=== PATIENT | male | born 1945 | race Caucasian/White ===

== ENCOUNTER 2018-11-06 10:48 | Day surgery (SDC) | payer OTHER, BC ==
[2018-11-05 17:43] VITALS: BMI 22.8
[2018-11-06] MEDS ORDERED: MIDAZOLAM HCL 2 MG/2 ML SINGLE DOSE VIAL ONE ×2 (12:43→12:47)
[2018-11-06] MEDS ORDERED: ceFAZolin SODIUM 1 GM VIAL ONE (12:47)
[2018-11-06] MEDS ORDERED: DEXAMETHASONE SOD PHOSPHATE 4 MG/1 ML VIAL ONE (12:47)
[2018-11-06] MEDS ORDERED: ceFAZolin SODIUM 1 GM VIAL IVPB ONE (12:54)
--- NOTE | 2018-11-06 13:01 | OP ---
Operative Note - Note: Operative Date: 11/06/18 Pre-Operative Diagnosis: Right renal calculus Operation: Right renal stone Post-Operative Diagnosis: Same as Pre-op Surgeon: Julio Perez MD. Anesthesia: MAC Operative Report Dictated: Yes
[2018-11-06] MEDS ORDERED: ELECTROLYTE-148 SOLN 1,000 ML IV SCH (13:15)
[2018-11-06] MEDS ORDERED: KETOROLAC TROMETHAMINE 30 MG/1 ML VIAL ONE (13:23)
[2018-11-06 15:10] VITALS: BP 129/77; PULSE 61; TEMP 98
--- NOTE | 2018-11-07 09:55 | OP ---
DATE OF OPERATION: 11/06/2018 SURGEON: Julio Perez MD PREOPERATIVE DIAGNOSIS: Right renal calculus in retained stent. POSTOPERATIVE DIAGNOSIS: Right renal calculus in retained stent. PROCEDURE: Extracorporeal shock wave lithotripsy HISTORY: This is a pleasant 73-year-old gentleman with a long history of urinary calculi who by another urologist was treated approximately 1 year ago. Patient presented with recurrent hematuria and flank pain. Preoperative imaging revealed the retained stent with multiple calcifications along the course of the stent including a 1-cm renal pelvic stone as well as a bladder stone. After discussing treatment options out loud and difficulty of the situation being that the stent was calcified throughout its course, it was recommended then to do a lithotripsy first to break up the renal pelvic stone and then to perform ureteroscopy which may be end-stage procedures due to the complexity of the condition. All questions were answered. Risks and benefits were discussed clearly. BRIEF OPERATIVE NOTE: The patient was brought to the operating room, placed in supine position. Once general anesthesia was administered, the stone was localized using 3D fluoroscopy. At this time, approximately 2500 shocks were delivered in electromagnetic fashion. Patient tolerated the procedure well and was brought to the recovery room in stable and satisfactory condition. Intravenous antibiotics were given prior to the procedure. Austyn MERRITT/[id number]
== END 2018-11-06 15:10 | disposition home or self-care (01) ==
LOC: JASU-SURG 10:48
PROVIDERS: ATTEND Urology
PROC: 0TF3XZZ Fragmentation in Right Kidney Pelvis, External Approach (ICD-10-PCS; principal; 2018-11-06 11:15)
DX: N20.0 Calculus of kidney (principal)

== ENCOUNTER 2018-11-10 04:06 | Emergency (ER) | payer OTHER, BC ==
--- NOTE | 2018-11-10 04:37 | PDOC ---
Attending Attestation - Resident Resident Name: Daniel Sepulveda - ED Attending Attestation I have performed the following: I have examined & evaluated the patient, The case was reviewed & discussed with the resident, I agree w/resident's findings & plan - HPI HPI: 11/10/18 05:07 Pt had lithotripsy and he now has pain, as the stones are passing. Pt comes to the ER for relief. - Physicial Exam PE: 11/10/18 05:08 Pt has suprapubic pain at this time. - Medical Decision Making 11/10/18 05:08 Pt had labs sent. He will be hydrated and he was given toradol. He imediately felt better with the toradol. 11/10/18 05:37 UA normal. Pt has blood; no question there will be some WBCs; however, no nitrites and pt will be sent home with analgesics; no need for ABX at this time. 11/10/18 05:38 Diagnosis renal colic
[2018-11-10 04:43] VITALS: BP 143/95; PULSE 75; TEMP 98.2; BMI 23.1
[2018-11-10] MEDS ORDERED: ONDANSETRON 4 MG/2 ML VIAL IVPUSH ONE (04:43)
[2018-11-10] MEDS ORDERED: SODIUM CHLORIDE 1,000 ML IV STA (04:43)
[2018-11-10] MEDS ORDERED: ACETAMINOPHEN 325 MG TABLET (FP) PO ONE (04:43)
--- NOTE | 2018-11-10 04:43 | PDOC ---
History of Present Illness <Benita Aguilera - Last Filed: 11/10/18 05:38> - General History Source: Patient Exam Limitations: No Limitations - History of Present Illness Initial Comments: Kalyan Murray is a 73 yo M w a sig pmh of kidney stones s/p recent lithotripsy 3 days prior, BPH, and inguinal hernia surgeries who presents to the [facility] ER via private auto for right flank pain stating he has a kidney stone and is in excruciating pain. The patient states he had a 10 mm obstructing stone recently diagnosed for which he underwent lithotripsy this past Monday by Dr. Julio Perez. Ever since the lithotripsy he has been urinating scant blood. He has had mild pain on and off but this morning at 12:30 Am the pain became excruciating and he could not tolerate it. The pain was sharp in the right flank and radiated down to his right abdomen and to the groin. The pain was rated 10/10 and associated with nausea but no emesis. Patient tried taking tylenol for the pain without relief. Patient denies recent fevers, chills, infections. Denies chest pain, SOB, or difficulty breathing. Endorses hematuria but denies dysuria, frequency, or urgency. PCP: Bret Tenorio Urologist: Julio Perez PSH: Lithotripsy x2, inguinal hernia surgery Social Hx: Denies smoking, drinking, or other substance usage. Allergies: NKA, NKDA <Daniel Sepulveda - Last Filed: 11/10/18 06:16> - General Chief Complaint: Back Pain Stated Complaint: POST PROCEDURE ABD PAIN Time Seen by Provider: 11/10/18 04:33 Past History <Benita Aguilera - Last Filed: 11/10/18 05:38> - Past Medical History Anemia: No Asthma: No Cancer: No Cardiac Disorders: No CVA: No COPD: No CHF: No Dementia: No Diabetes: No GI Disorders: No Disorders: Yes (enlarged prostate) HTN: No Hypercholesterolemia: No Liver Disease: No Seizures: No Thyroid Disease: No - Surgical History Abdominal Surgery: Yes (herniax2) - Suicide/Smoking/Psychosocial Hx Smoking History: Never smoked Hx Alcohol Use: No Drug/Substance Use Hx: No Substance Use Type: None <Daniel Sepulveda - Last Filed: 11/10/18 06:16> - Past Medical History Allergies/Adverse Reactions: Allergies Allergy/AdvReac Type Severity Reaction Status Date / Time No Known Allergies Allergy Verified 11/10/18 05:55 Home Medications: Ambulatory Orders Alfuzosin HCl [Alfuzosin HCl ER] 10 mg PO HS 11/05/18 Ibuprofen [Motrin -] 600 mg PO TID #30 tablet 11/10/18 Review of Systems - Review of Systems Able to Perform ROS?: Yes Comments:: CONSTITUTIONAL: Absent: fever, chills, diaphoresis, generalized weakness, malaise, loss of appetite HEENT: Absent: rhinorrhea, nasal congestion, throat pain, throat swelling, difficulty swallowing, mouth swelling, ear pain, eye pain, visual Changes CARDIOVASCULAR: Absent: chest pain, syncope, palpitations, irregular heart rate, lightheadedness , peripheral edema RESPIRATORY: Absent: cough, shortness of breath, dyspnea with exertion, orthopnea, wheezing, stridor, hemoptysis GASTROINTESTINAL: Present: Abdominal pain, nausea Absent: abdominal distension, vomiting, diarrhea, constipation, melena, hematochezia GENITOURINARY: Present: hematuria, flank pain Absent: dysuria, frequency, urgency, hesitancy, genital pain MUSCULOSKELETAL: Absent: myalgia, arthralgia, joint swelling SKIN: Absent: rash, itching, pallor HEMATOLOGIC/IMMUNOLOGIC: Absent: easy bleeding, easy bruising, lymphadenopathy, frequent infections ENDOCRINE: Absent: unexplained weight gain, unexplained weight loss, heat intolerance, cold intolerance NEUROLOGIC: Absent: headache, focal weakness or paresthesias, dizziness, unsteady gait, seizure, mental status changes, bladder or bowel incontinence PSYCHIATRIC: Absent: anxiety, depression, suicidal or homicidal ideation, hallucinations. <Daniel Sepulveda - Last Filed: 11/10/18 06:16> *Physical Exam - Vital Signs Last Vital Signs Temp Pulse Resp BP Pulse Ox 98.2 F 75 20 143/95 98 11/10/18 04:30 11/10/18 04:30 11/10/18 04:30 11/10/18 04:30 11/10/18 04:30 <Benita Aguilera - Last Filed: 11/10/18 05:38> - Physical Exam Comments: GENERAL: Well developed, well nourished. Awake and alert. Moderate distress. HEENT: Normocephalic, atraumatic. PERRLA, EOMI. No conjunctival pallor. Sclera are non- icteric. Moist mucous membranes. Oropharynx is clear. NECK: Supple. Full ROM. No JVD. No lymphadenopathy. CARDIOVASCULAR: Regular rate and rhythm. No murmurs, rubs, or gallops. Distal pulses are 2+ and symmetric. PULMONARY: No evidence of respiratory distress. Lungs clear to auscultation bilaterally. No wheezing, rales or rhonchi. ABDOMINAL: Soft. Non-tender. Non-distended. No rebound or guarding. No organomegaly. Normoactive bowel sounds. MUSCULOSKELETAL There is right sided CVA tenderness. Normal range of motion at all joints. No bony deformities or tenderness. EXTREMITIES: No cyanosis. No clubbing. No edema. No calf tenderness. SKIN: Warm and dry. Normal capillary refill. No rashes. No jaundice. NEUROLOGICAL: Alert, awake, appropriate. Cranial nerves 2-12 intact. No deficits to light touch in face, upper extremities and lower extremities. No motor deficits in the in face, upper extremities and lower extremities. Normal speech. Gait is normal without ataxia. PSYCHIATRIC: Cooperative. Good eye contact. Appropriate mood and affect. <Daniel Sepulveda - Last Filed: 11/10/18 06:16> ED Treatment Course - LABORATORY CBC & Chemistry Diagram: 11/10/18 04:56 11/10/18 04:56 - ADDITIONAL ORDERS Additional order review: Laboratory Results 11/10/18 11/10/18 05:11 04:56 Sodium 139 Potassium 4.0 Chloride 106 Carbon Dioxide 24 Anion Gap 9 BUN 16.0 Creatinine 1.5 H Est GFR (CKD-EPI)AfAm 53.14 Est GFR (CKD-EPI)NonAf 45.85 Random Glucose 116 H Calcium 8.9 Total Bilirubin 0.6 AST 16 ALT 21 Alkaline Phosphatase 49 Total Protein 6.7 Albumin 3.6 Urine Color Yellow Urine Appearance Cloudy Urine pH 8.0 Ur Specific Ten Sleep 1.016 Urine Protein 1+ H Urine Glucose (UA) Negative Urine Ketones Trace H Urine Blood 3+ H Urine Nitrite Negative Urine Bilirubin Negative Urine Urobilinogen 0.2 Ur Leukocyte Esterase 1+ H Urine WBC (Auto) 11 Urine RBC (Auto) 192 Urine Casts (Auto) 5 U Epithel Cells (Auto) 2.3 Urine Bacteria (Auto) 0 11/10/18 04:56 RBC 4.18 MCV 94.4 MCHC 35.6 RDW 12.9 MPV 9.3 Neutrophils % 75.6 Lymphocytes % 15.7 Monocytes % 7.4 Eosinophils % 0.6 Basophils % 0.7 - Medications Given in the ED: ED Medications Discontinued Medications Generic Name Dose Route Start Last Admin Trade Name Bambi PRN Reason Stop Dose Admin Acetaminophen 975 mg 11/10/18 04:43 11/10/18 04:50 Tylenol - PO 11/10/18 04:44 975 mg ONCE ONE Administration Ketorolac Tromethamine 60 mg 11/10/18 04:44 11/10/18 05:22 Toradol Injection - IM 11/10/18 04:45 Not Given ONCE ONE Ketorolac Tromethamine 30 mg 11/10/18 05:05 11/10/18 04:50 Toradol Injection - IVPUSH 11/10/18 05:06 30 mg ONCE ONE Administration Ondansetron HCl 4 mg 11/10/18 04:43 11/10/18 04:53 Zofran Injection IVPUSH 11/10/18 04:44 4 mg ONCE ONE Administration <Benita Aguilera - Last Filed: 11/10/18 05:38> - LABORATORY CBC & Chemistry Diagram: 11/10/18 04:56 11/10/18 04:56 <Daniel Sepulveda - Last Filed: 11/10/18 06:16> Medical Decision Making - Medical Decision Making Kalyan Murray is a 73 yo M w a sig pmh of kidney stones s/p recent lithotripsy 3 days prior, BPH, and inguinal hernia surgeries who presents to the [facility] ER via private auto for right flank pain stating he has a kidney stone and is in excruciating pain. The patient states he had a 10 mm obstructing stone recently diagnosed for which he underwent lithotripsy this past Monday by Dr. Julio Perez. Ever since the lithotripsy he has been urinating scant blood. He has had mild pain on and off but this morning at 12:30 Am the pain became excruciating and he could not tolerate it. The pain was sharp in the right flank and radiated down to his right abdomen and to the groin. The pain was rated 10/10 and associated with nausea but no emesis. Patient tried taking tylenol for the pain without relief. Vital Signs Temp Pulse Resp BP Pulse Ox 98.2 F 75 20 143/95 98 11/10/18 04:30 11/10/18 04:30 11/10/18 04:30 11/10/18 04:30 11/10/18 04:30 DDx IBNLT: Kidney stone, UTI/Pylo, electrolyte/metabolic disturbance, Arrhythmia , dehydration. MDM: Most likely a kidney stone given hx of kidney stones, recent lithotripsy, patient states this hurts like all of his kidney stones. Plan: Labs, Urine, IV hydration, analgesia, re-assess. Labs: Elevated Cr of 1.5 Urine: 3+ blood consistent with a kidney stone Re-assessment: Patient feels much better after IV toradol and currently has no more pain. Disposition: Home w/ PCP and renal fu - Patient advised that his Cr is elevated and he needs to follow up about this finding with both his PCP and urologist/renal doc. <Daniel Sepulveda - Last Filed: 11/10/18 06:16> *DC/Admit/Observation/Transfer - Discharge Dispostion Decision to Admit order: No <Benita Aguilera - Last Filed: 11/10/18 05:38> - Discharge Dispostion Decision to Admit order: No <Daniel Sepulveda - Last Filed: 11/10/18 06:16> Diagnosis at time of Disposition: Renal colic - Discharge Dispostion Disposition: HOME Condition at time of disposition: Improved - Prescriptions Prescriptions: Ibuprofen [Motrin -] 600 mg PO TID #30 tablet - Referrals Referrals: Bret Tenorio MD [Primary Care Provider] - Julio Perez MD., [Staff Physician] - - Patient Instructions Printed Discharge Instructions: Kidney Stones -- Adult Additional Instructions: You came into the ER with right flank pain. We believe this was from a kidney stone as your urine showed that you have blood in it. You felt much better after we gave you an anti-inflammatory medication. Take advil as needed for pain control. Drink plenty of fluids. Come back to the ER immediately if you get a fever, have severe pain, start vomiting, or have any other new or worsening concerns. Please make sure to schedule a follow up appointment with both your primary care doctor and your urologist in the next 3 to 5 days make sure you are being taken care of and getting better. We looked at your blood and found that your Cr was elevated at 1.5. It is extremely important that you discuss this lab finding with your primary care doctor and move forward accordingly. Thank you for coming to the [facility]. We hope you feel better soon! Print Language: SAUDI ARABIAN - Post Discharge Activity
[2018-11-10] MEDS ORDERED: KETOROLAC TROMETHAMINE 60 MG/2 ML VIAL IM ONE (04:44)
[2018-11-10] MEDS ORDERED: ACETAMINOPHEN 325 MG TABLET (FP) ONE (04:46)
[2018-11-10] MEDS ORDERED: KETOROLAC TROMETHAMINE 60 MG/2 ML VIAL ONE (04:47)
[2018-11-10] MEDS ORDERED: ONDANSETRON 4 MG/2 ML VIAL ONE (04:47)
[2018-11-10] MEDS ORDERED: KETOROLAC TROMETHAMINE 30 MG/1 ML VIAL IVPUSH ONE (05:05)
[2018-11-10 05:11] LABS: BASO % 0.7 % (0-2.0); EOS % 0.6 % (0-4.5); HEMATOCRIT 39.5 % (35.4-49); LYMPH % 15.7 % (8-40); MCH 33.6 pg (25.7-33.7); MCHC 35.6 g/dl (32.0-35.9); MEAN CELL VOLUME 94.4 fl (80-96); MEAN PLT VOLUME 9.3 fl (7.5-11.1); MONO % 7.4 % (3.8-10.2); NEUT % 75.6 % (42.8-82.8); PLATELET COUNT 207 K/MM3 (134-434); RBC 4.18 M/mm3 (4.00-5.60); RDW 12.9 % (11.9-15.9); WHITE BLOOD COUNT 9.9 K/mm3 (4.0-10.0)
[2018-11-10 05:31] LABS: EPI CELLS 2.3 /HPF (0-5/HPF); HYALINE CASTS 5 /lpf (0-8); URINE APPEARANCE CLOUDY; URINE BACTERIA 0 /hpf (NEGATIVE); URINE BILIRUBIN NEGATIVE (NEGATIVE); URINE COLOR YELLOW; URINE GLUCOSE (UA) NEGATIVE (NEGATIVE); URINE KETONE TRACE (NEGATIVE); URINE LEUK ESTERASE 1+ (NEGATIVE); URINE NITRITE NEGATIVE (NEGATIVE); URINE PROTEIN 1+ (NEGATIVE); URINE RBC 192 /hpf (0-4); URINE UROBILINOGEN 0.2 mg/dL (0.2-1.0); URINE WBC 11 /hpf (0-5)
[2018-11-10 05:35] LABS: ALBUMIN 3.6 g/dl (3.4-5.0); BILIRUBIN,TOTAL 0.6 mg/dL (0.2-1); CALCIUM 8.9 mg/dL (8.5-10.1); CREATININE 1.5 mg/dL (0.55-1.3); TOT PROT 6.7 g/dl (6.4-8.2)
== END 2018-11-10 06:06 | disposition home or self-care (01) ==
LOC: JER 04:06
PROC: 3E0333Z Introduction of Anti-inflammatory into Peripheral Vein, Percutaneous Approach (ICD-10-PCS; principal; 2018-11-10)
PROC: 3E033GC Introduction of Other Therapeutic Substance into Peripheral Vein, Percutaneous Approach (ICD-10-PCS; 2018-11-10)
PROC: 3E0337Z Introduction of Electrolytic and Water Balance Substance into Peripheral Vein, Percutaneous Approach (ICD-10-PCS; 2018-11-10)
DX: N20.0 Calculus of kidney (principal); N40.0 Benign prostatic hyperplasia without lower urinary tract symptoms
CPT/HCPCS: 36415; 80053; 81003; 85025; 96361; 96374; 96375; 99284-25; J7030